=== PATIENT | male | born 1985 | race Caucasian/White ===

== ENCOUNTER 2019-01-22 16:47 | Emergency (ER) | payer OTHER, SELFPAY ==
[~2019-01-22] VITALS: Ht 185.4 cm; Wt 80.2 kg
[2019-01-22 17:06] VITALS: BP 129/74
== END 2019-01-22 19:40 | disposition home or self-care (01) ==
LOC: ED 19:00
DX: G89.11 Acute pain due to trauma (principal); M25.511 Pain in right shoulder; X58.XXXA Exposure to other specified factors, initial encounter; Y93.89 Activity, other specified; Y92.009 Unspecified place in unspecified non-institutional (private) residence as the place of occurrence of the external cause; Y99.8 Other external cause status
CPT/HCPCS: 99283